=== PATIENT | male | born 1975 | race Two or more races ===

== ENCOUNTER 2018-09-10 16:44 | Emergency (ER) | payer OTHER ==
[~2018-09-10] VITALS: Ht 175.3 cm; Wt 99.8 kg
[2018-09-10 18:53] VITALS: BP 110/73
== END 2018-09-10 20:32 | disposition home or self-care (01) ==
LOC: ER 16:44
DX: S83.92XA Sprain of unspecified site of left knee, initial encounter (principal); E11.9 Type 2 diabetes mellitus without complications; I10 Essential (primary) hypertension; V28.4XXA Motorcycle driver injured in noncollision transport accident in traffic accident, initial encounter; Y93.89 Activity, other specified; Y92.410 Unspecified street and highway as the place of occurrence of the external cause; Y99.8 Other external cause status
CPT/HCPCS: 29505